=== PATIENT | male | born 1985 | race African-American/Black ===

== ENCOUNTER 2017-09-29 00:07 | Emergency (ER) | payer SELFPAY ==
[~2017-09-29] VITALS: Ht 185.4 cm; Wt 73.4 kg
[2017-09-29 01:29] LABS: HEMATOCRIT 45.4 % (38.0-50.0); HEMOGLOBIN 14.9 G/DL (12.5-16.6); MCH 28.7 PG (29.0-34.0); MCHC 32.8 G/DL (30.0-36.0); MCV 87.5 FL (86-99); PLATELET COUNT 224 K/uL (156-360); RBC DIS.WIDTH-CV 12.7 % (11.8-14.6); RBC DIS.WIDTH-SD 40.7 % (39-53); RED BLOOD COUNT 5.19 M/uL (4.00-5.50); WHITE BLOOD COUNT 12.4 K/uL (4.1-10.2)
[2017-09-29 01:37] LABS: CHLORIDE 101 mEq/L (99-109); POTASSIUM 3.5 mEq/L (3.7-5.4); SODIUM 138 mEq/L (136-147)
[2017-09-29 01:38] LABS: GLUCOSE 113 mg/dL (70-99)
[2017-09-29 01:42] LABS: CREATININE 1.3 mg/dL (0.6-1.3); GFR ESTIMATE (CALCULATED) > 59 mL/min/ (58.99-99999)
[2017-09-29 01:43] LABS: UREA NITROGEN (BUN) 8 mg/dL (9-23)
[2017-09-29 01:48] LABS: IMM.RETIC FRACTION 8.6 % (3-19); RETIC HGB EQUIVALENT 29.9 (28-36); RETICULOCYTE COUNT 1.1 % (0.5-1.8)
[2017-09-29 04:02] VITALS: BP 115/61
== END 2017-09-29 04:03 | disposition home or self-care (01) ==
LOC: EME 00:07
PROVIDERS: Physician Assistant
DX: N48.30 Priapism, unspecified (principal); F17.200 Nicotine dependence, unspecified, uncomplicated
CPT/HCPCS: 80048; 85027; 85046; 99281; 99283; J2270; J2405

== ENCOUNTER 2018-03-12 22:29 | Inpatient (IN) | payer OTHER ==
[~2018-03-12] VITALS: Ht 185.4 cm; Wt 77.9 kg
[2018-03-12 22:46] LABS: ABSOLUTE RETICULOCYTE CT. 0.07 M/uL (0.02-0.08); BASOPHIL (%) 0.2 % (0-1); EOSINOPHIL (%) 0.2 % (0-5); HEMATOCRIT 53.6 % (38.0-50.0); HEMOGLOBIN 18.5 G/DL (12.5-16.6); IMM.RETIC FRACTION 9.4 % (3-19); IMMATURE GRANULOCYTE (%) 0.5 % (0.0-0.7); LYMPHOCYTE (%) 14.1 % (15-42); LYMPHOCYTE COUNT 2.6 K/uL (1.0-2.8); MCH 29.8 PG (29.0-34.0); MCHC 34.5 G/DL (30.0-36.0); MCV 86.3 FL (86-99); MONOCYTE COUNT 1.5 K/uL (0-0.8); NEUTROPHIL COUNT 14.1 K/uL (1.8-6.4); PLATELET COUNT 373 K/uL (156-360); RBC DIS.WIDTH-CV 12.7 % (11.8-14.6); RBC DIS.WIDTH-SD 39.7 % (39-53); RED BLOOD COUNT 6.21 M/uL (4.00-5.50); RETIC HGB EQUIVALENT 36.2 (28-36); RETICULOCYTE COUNT 1.1 % (0.5-1.8); WHITE BLOOD COUNT 18.3 K/uL (4.1-10.2)
[2018-03-12 22:55] LABS: ALBUMIN 5.8 g/dL (3.2-4.8); CHLORIDE 90 mEq/L (99-109); POTASSIUM 3.2 mEq/L (3.7-5.4); SODIUM 140 mEq/L (136-147)
[2018-03-12 22:56] LABS: MAGNESIUM 3.4 mg/dL (1.3-2.7)
[2018-03-12 22:57] LABS: GLUCOSE 132 mg/dL (70-99)
[2018-03-12 22:58] LABS: TOTAL PROTEIN 10.6 g/dL (6.4-8.3)
[2018-03-12 22:59] LABS: TOTAL BILIRUBIN 1.5 mg/dL (0.0-1.0)
[2018-03-12 23:01] LABS: ALKALINE PHOSPHATASE 80 IU/L (3-129); CREATININE 4.5 mg/dL (0.6-1.3); GFR ESTIMATE (CALCULATED) 20 mL/min/ (58.99-99999); PHOSPHORUS 3.6 mg/dL (2.5-4.9)
[2018-03-12 23:02] LABS: UREA NITROGEN (BUN) 18 mg/dL (9-23)
[2018-03-12 23:03] LABS: AST (GOT) 19 IU/L (2-34)
[2018-03-12 23:04] LABS: ALT (GPT) 20 IU/L (3-49); CREATINE KINASE 270 IU/L (1-294); TOTAL CK 270 IU/L (1-294)
[2018-03-12 23:06] LABS: TROP-I INTERPRETATION NEGATIVE; TROPONIN-I < 0.01 ng/mL (0.0-0.30)
[2018-03-12 23:11] LABS: CK-MB 0.7 ng/mL (0.0-4.9); CKMB RELATIVE INDEX 0.3 (0.0-3.9)
[2018-03-13 00:08] LABS: SERUM ETHYL ALCOHOL < 10 mg/dL
[2018-03-13 00:12] LABS: ACETAMINOPHEN (TYLENOL) < 10 mcg/mL (10-30); SALICYLATE < 5.0 MG/DL (15-30)
[2018-03-13] MEDS ORDERED: PRAZOSIN HCL2 MG PO (01:50)
[2018-03-13] MEDS ORDERED: QUETIAPINE FUM300 MG PO (01:51)
[2018-03-13] MEDS ORDERED: QUETIAPINE FUM400 MG PO (01:53)
[2018-03-13 04:17] LABS: COMMENTS - BLOOD GASES C+ A+; DEVICE RA; PCO2 47 mm Hg (35-45); PO2 94 mm Hg (80-100); SITE LR; pH 7.41 (7.35-7.45)
[2018-03-13 04:18] LABS: BASE EXCESS 4.2 mEq/L (-3 to +3); BICARBONATE 29.8 mEq/L (22-26); CARBOXY HGB 2.5 % (0-5); METHEMOGLOBIN 1.3 % (0-1.5); O2 SATURATION (CALCULATED) 98.8 % (95-99)
[2018-03-13 05:00] LABS: APPEARANCE SL.HAZY ((CLEAR)); BILIRUBIN SMALL; BLOOD NEGATIVE; COLOR AMBER ((YELLOW)); GLUCOSE (STRIP) NEGATIVE; KETONES 5; LEUKOCYTES NEGATIVE; NITRITE NEGATIVE; PROTEIN (STRIP) 100; SPECIFIC GRAVITY 1.033 (1.000-1.030)
[2018-03-13 05:01] LABS: BACTERIA RARE /HPF; EPITHELIAL CELLS RARE /HPF; HYALINE CASTS TNTC /LPF; MUCUS 4+ /LPF; UCUL ADDED? YES
[2018-03-13 05:03] LABS: TROP-I INTERPRETATION NEGATIVE; TROPONIN-I < 0.01 ng/mL (0.0-0.30)
[2018-03-13 05:27] VITALS: BP 119/73
[2018-03-13 05:42] LABS: CREATINE KINASE 344 IU/L (1-294); TOTAL CK 344 IU/L (1-294)
[2018-03-13 05:47] LABS: CKMB RELATIVE INDEX 0.3 (0.0-3.9)
[2018-03-13 07:44] VITALS: BP 112/74
[2018-03-13 07:46] LABS: INTACT PARATHYROID HORMONE 96 pg/mL (10-69)
[2018-03-13 08:36] LABS: BENZODIAZEPINES, URINE SCREEN Negative (200 ng/mL)
[2018-03-13 08:51] LABS: CHLORIDE 97 MEQ/L (99-109); GLUCOSE 122 mg/dL (70-99); SODIUM 136 MEQ/L (136-147); UREA NITROGEN (BUN) 20 mg/dL (9-23)
[2018-03-13 08:52] LABS: CREATININE 2.4 MG/DL (0.6-1.3); GFR ESTIMATE (CALCULATED) 41 mL/min/ (58.99-99999); POTASSIUM 3.9 MEQ/L (3.7-5.4)
[2018-03-13 09:18] LABS: HEMATOCRIT 41.2 % (38.0-50.0); HEMOGLOBIN 14.1 G/DL (12.5-16.6); MCH 29.5 PG (29.0-34.0); MCHC 34.2 G/DL (30.0-36.0); MCV 86.2 FL (86-99); PLAT.SUFFICIENCY ADEQUATE; RBC DIS.WIDTH-CV 12.8 % (11.8-14.6); RED BLOOD COUNT 4.78 M/uL (4.00-5.50); WHITE BLOOD COUNT 13.6 K/uL (4.1-10.2)
[2018-03-13 09:19] LABS: PLATELET COUNT 261 K/uL (156-360)
[2018-03-13 12:39] VITALS: BP 118/68
[2018-03-13 15:48] LABS: HEMATOCRIT 41.3 % (38.0-50.0); HEMOGLOBIN 13.7 G/DL (12.5-16.6); MCV 88.1 FL (86-99)
[2018-03-13 16:20] VITALS: BP 120/74
[2018-03-13 20:06] VITALS: BP 122/62
[2018-03-13 22:49] VITALS: BP 117/68
[2018-03-14 03:55] VITALS: BP 107/59
[2018-03-14 05:55] LABS: HEMATOCRIT 36.5 % (38.0-50.0); HEMOGLOBIN 12.4 G/DL (12.5-16.6); MCV 88.4 FL (86-99); PLATELET COUNT 226 K/uL (156-360); RBC DIS.WIDTH-CV 12.6 % (11.8-14.6); RED BLOOD COUNT 4.13 M/uL (4.00-5.50); WHITE BLOOD COUNT 13.3 K/uL (4.1-10.2)
[2018-03-14 06:24] LABS: CHLORIDE 106 MEQ/L (99-109); CREATININE 1.3 MG/DL (0.6-1.3); GFR ESTIMATE (CALCULATED) > 59 mL/min/ (58.99-99999); GLUCOSE 117 mg/dL (70-99); POTASSIUM 4.2 MEQ/L (3.7-5.4); SODIUM 142 MEQ/L (136-147); UREA NITROGEN (BUN) 13 mg/dL (9-23)
[2018-03-14 07:15] VITALS: BP 131/68
[2018-03-14 08:38] LABS: INTACT PARATHYROID HORMONE 56 pg/mL (10-69)
[2018-03-14 11:32] VITALS: BP 117/59
[2018-03-14 12:25] LABS: HEPATITIS C ANTIBODY Nonreactive; HIV-1/2 AB/AG COMBO Nonreactive
[2018-03-14 16:13] VITALS: BP 101/57
[2018-03-14 19:30] VITALS: BP 102/56
[2018-03-14 21:16] VITALS: BP 120/72
[2018-03-15 00:01] VITALS: BP 99/56
[2018-03-15 03:38] VITALS: BP 103/52
[2018-03-15 06:58] VITALS: BP 101/55
[2018-03-15 08:50] LABS: HEMATOCRIT 38.4 % (38.0-50.0); HEMOGLOBIN 12.8 G/DL (12.5-16.6); MCH 29.7 PG (29.0-34.0); MCHC 33.3 G/DL (30.0-36.0); MCV 89.1 FL (86-99); PLATELET COUNT 225 K/uL (156-360); RBC DIS.WIDTH-CV 12.6 % (11.8-14.6); RBC DIS.WIDTH-SD 41.6 % (39-53); RED BLOOD COUNT 4.31 M/uL (4.00-5.50); WHITE BLOOD COUNT 10.7 K/uL (4.1-10.2)
== END 2018-03-15 10:04 | disposition left against medical advice (07) | DRG 982 ==
LOC: EME 22:29 → 5SOUTH 03-13 03:09 → EDOF 03-13 03:09 → ENRESERV 03-13 03:10 → 5SOUTH 03-13 05:21
PROVIDERS: Emergency Medicine; Hospitalist; Physician Assistant Medical
PROC: 0D9QXZZ Drainage of Anus, External Approach (ICD-10-PCS; principal; 2018-03-14)
DX: N17.9 Acute kidney failure, unspecified (principal); K61.0 Anal abscess; E87.2 Acidosis; L02.31 Cutaneous abscess of buttock; E83.52 Hypercalcemia; E86.0 Dehydration; E86.1 Hypovolemia; E87.6 Hypokalemia; F14.10 Cocaine abuse, uncomplicated; F17.210 Nicotine dependence, cigarettes, uncomplicated; E88.09 Other disorders of plasma-protein metabolism, not elsewhere classified; F20.9 Schizophrenia, unspecified; K52.9 Noninfective gastroenteritis and colitis, unspecified; F43.12 Post-traumatic stress disorder, chronic
CPT/HCPCS: 36600; 70450; 71045; 74176; 80048; 80053; 80076; 80306 90; 81003; 82550; 82553; 83605; 83735; 83970; 84100; 84484; 85014; 85018; 85025; 85027; 85046; 85651; 86803; 87070; 87075; 87077; 87086; 87147; 87186; 87205; 87389; 93005; 99281; 99285; C9113; G0480; J1170; J1885; J2060; J2250; J2405; J3010; J7030; J7120